=== PATIENT | male | born 1990 | race Caucasian/White ===

== ENCOUNTER 2018-04-22 22:45 | Day surgery (SDC) | payer OTHER ==
[2018-04-22 23:00] VITALS: BMI 28.1
--- NOTE | 2018-04-22 23:28 | PDOC ---
Attending Attestation - HPI HPI: 04/22/18 23:31 The patient is a 27 year old male with no past medical history here today for evaluation of abdominal pain. Patient reports that his pain began 3 days ago, is localized to the right lower quadrant, and rates it between a 3/10 and a 5/ 10. He reports having gas and taking gas-x to alleviate his symptoms. He notes one episode of diarrhea. Patient denies headache, lightheadedness. Denies fever, chills. Denies chest pain, shortness of breath. Denies nausea, vomiting. Denies urinary symptoms. Allergies: NKA PCP: none reported - Physicial Exam PE: 04/22/18 23:31 GENERAL: Awake, alert, and fully oriented, in no acute distress HEAD: No signs of trauma EYES: PERRLA, EOMI, sclera anicteric, conjunctiva clear ENT: Auricles normal inspection, hearing grossly normal, nares patent, oropharynx clear without exudates. Moist mucosa NECK: Normal ROM, supple, no lymphadenopathy, JVD, or masses LUNGS: Breath sounds equal, clear to auscultation bilaterally. No wheezes, and no crackles HEART: Regular rate and rhythm, normal S1 and S2, no murmurs, rubs or gallops ABDOMEN: +right lower quadrant tenderness with guarding. Soft, normoactive bowel sounds. No guarding. No masses EXTREMITIES: Normal range of motion, no edema. No clubbing or cyanosis. No cords, erythema, or tenderness NEUROLOGICAL: Cranial nerves II through XII grossly intact. Normal speech, normal gait SKIN: Warm, Dry, normal turgor, no rashes or lesions noted. - Medical Decision Making 04/22/18 23:32 Documentation prepared by GUIDO Bird, acting as medical technologist prn for Sima Mckenzie MD. <Elroy Trujillo - Last Filed: 04/22/18 23:31> - Resident Resident Name: Adarsh Morgan - ED Attending Attestation I have performed the following: I have examined & evaluated the patient, The case was reviewed & discussed with the resident, I agree w/resident's findings & plan - Medical Decision Making 04/23/18 00:04 Pt has RLQ pain that has been constant and consistent for the past 3 days. States that he is able to eat and that he has been moving his bowels. No loss of appetite. He is gassy, but the pain doesn't move. He has no abd swelling or fever or rash. He has no obvious hernias. He has no dysuria and no penile discharge or hematuria and no testicular swelling. 04/23/18 01:37 Chem result is still pending, as it was once hemolyzed. As a result IV contrast CT is still pending 04/23/18 02:50 Patient Name: SD POWELL THIS IS A PRELIMINARY REPORT FROM [facility] DATE OF SERVICE: 2018-04-23 02:03:52 IMAGES: [id number] EXAM: ABDOMEN \T\ PELVIS CT WITH CONTR HISTORY: Rule out appendicitis COMPARISON: None. FINDINGS: Lung bases are clear. The visualized cardiac chambers are normal size and configuration. Normal liver, gallbladder, pancreas, spleen, adrenal glands and kidneys. The stomach and abdominal small and large bowel are normal. There is no aortic aneurysm. There is no significant retroperitoneal lymphadenopathy. The pelvic small and large bowel are normal. The appendix is mildly dilated and inflamed, consistent acute appendicitis. No abscess or free air. The urinary bladder and prostate gland are normal. No pelvic free fluid is identified. There is no significant pelvic lymphadenopathy. IMPRESSION: Acute appendicitis without abscess or free air. Pt is aware; we will treat with zosyn and admit to a med surg bed. Dr Delgado has been paged. 04/23/18 03:41 Pt will go for surgery in the AM. Surgeon aware and pt is aware; pt is NPO. <Sima Mckenzie - Last Filed: 04/23/18 03:42>
--- NOTE | 2018-04-23 00:07 | PDOC ---
History of Present Illness - General Chief Complaint: Pain, Acute Stated Complaint: ABDOMINAL PAIN Time Seen by Provider: 04/22/18 22:59 History Source: Patient Exam Limitations: No Limitations - History of Present Illness Initial Comments: 04/22/18 23:58 The patient is a 27M with no PMH who presents with 3 days of abdominal pain. The patient describes 3 days of constant (with intermittent intensity) RLQ pain , nonradiating, 3/10 (5/10 at its worst), alleviated mildly by ibuprofen and exacerbated by some movements. The pain is not better or worse at any time of day. The pain is not associated with fever, chills, nausea, vomiting, anorexia, or pain elsewhere in his abdomen. He admits to infrequent use of condoms with sexual contacts but denies dysuria, hematuria, discharge, and testicular pain. Past History - Past Medical History Allergies/Adverse Reactions: Allergies Allergy/AdvReac Type Severity Reaction Status Date / Time No Known Allergies Allergy Verified 04/22/18 22:53 Home Medications: Ambulatory Orders Simethicone [Gas-X] 125 mg PO BID PRN 04/23/18 Acetaminophen [Tylenol .Regular Strength -] 650 mg PO Q6H tablet 04/24/18 Ibuprofen [Motrin -] 600 mg PO Q6H tablet 04/24/18 COPD: No - Suicide/Smoking/Psychosocial Hx Smoking History: Never smoked Have you smoked in the past 12 months: No Information on smoking cessation initiated: No Hx Alcohol Use: No Drug/Substance Use Hx: No Review of Systems - Review of Systems Able to Perform ROS?: Yes Comments:: 04/23/18 00:07 GENERAL/CONSTITUTIONAL: No fever or chills. No weakness. HEAD, EYES, EARS, NOSE AND THROAT: No change in vision. No ear pain or discharge. No sore throat. CARDIOVASCULAR: No chest pain, palpitations, or lightheadedness. RESPIRATORY: No cough, wheezing, shortness of breath, or hemoptysis. GASTROINTESTINAL: Positive for abdominal pain. No nausea, vomiting, diarrhea, or constipation. GENITOURINARY: No dysuria, frequency, hematuria, or change in urination. MUSCULOSKELETAL: No joint or muscle swelling or pain. No neck or back pain. SKIN: No rash or lesions. NEUROLOGIC: No headache, numbness, tingling, focal weakness, loss of consciousness, or change in strength/sensation. ENDOCRINE: No increased thirst. No abnormal weight change. HEMATOLOGIC/LYMPHATIC: No anemia, easy bleeding, or history of blood clots. ALLERGIC/IMMUNOLOGIC: No hives or skin allergy. Is the patient limited Irish proficient: No *Physical Exam - Vital Signs Last Vital Signs Temp Pulse Resp BP Pulse Ox 98.3 F 86 16 123/86 100 04/22/18 22:51 04/22/18 22:51 04/22/18 22:51 04/22/18 22:51 04/22/18 22:51 - Physical Exam Comments: 04/23/18 00:08 GENERAL: Well developed, well nourished. Awake and alert. No acute distress. HEENT: Normocephalic, atraumatic. Hearing grossly normal. Moist mucous membranes. PERRLA, EOMI. No conjunctival pallor. NECK: Supple. Full ROM. No JVD. CARDIOVASCULAR: Regular rate and rhythm. No murmurs, rubs, or gallops. PULMONARY: No evidence of respiratory distress. Lungs clear to auscultation bilaterally. No wheezing, rales or rhonchi. ABDOMINAL: Soft. Mild tenderness to deep palpation in RLQ. Non-distended. No rebound or guarding. GENITOURINARY: No CVA tenderness bilaterally. MUSCULOSKELETAL: Normal range of motion at all joints. No bony deformities or tenderness. EXTREMITIES: No cyanosis. No clubbing. No edema. No calf tenderness or swelling. SKIN: Warm and dry. Normal capillary refill. No rashes. No jaundice. NEUROLOGICAL: Alert, awake, appropriate. Cranial nerves 2-12 grossly intact. Normal speech. Gait is normal without ataxia. PSYCHIATRIC: Cooperative. Good eye contact. Appropriate mood and affect. Moderate Sedation - Procedure Monitoring Vital Signs: Procedure Monitoring Vital Signs Temperature 98.3 F 04/22/18 22:51 Pulse Rate 86 04/22/18 22:51 Respiratory Rate 16 04/22/18 22:51 Blood Pressure 123/86 04/22/18 22:51 O2 Sat by Pulse Oximetry (%) 100 04/22/18 22:51 ED Treatment Course - LABORATORY CBC & Chemistry Diagram: 04/23/18 05:28 04/23/18 01:10 - RADIOLOGY Radiology Studies Ordered: Category Date Time Status ABDOMEN & PELVIS CT WITH CONTR [CT] Stat CT Scan 04/22/18 23:29 Ordered Medical Decision Making - Medical Decision Making 04/23/18 00:11 The patient is a 27M with no PMH who presents to the ER with complaints of RLQ pain. The patient states that he began to "google" symptoms and was scared that he had appendicitis. He had very mild tenderness without rebound, guarding, fever, chills, nausea, vomiting, anorexia. Very unlikely to be appendicitis but possibly can be early appendicitis. I have discussed this with the patient. Will discuss with attending for further management. 04/23/18 00:17 [address]ending [address]AP with labs. 04/23/18 00:34 Pt has rebound and guarding on reassessment. Pending CTAP with IV contrast. 04/23/18 01:07 CBC shows WBC of 14.9. Pending CMP. 04/23/18 01:59 Pt signed out to Dr. Hunt pending CTAP reading. *DC/Admit/Observation/Transfer Diagnosis at time of Disposition: Appendicitis - Discharge Dispostion Disposition: HOME Condition at time of disposition: Good - Referrals - Patient Instructions - Post Discharge Activity
[2018-04-23 00:20] LABS: BASO % 0.8 % (0-2.0); EOS % 2.1 % (0-4.5); HEMOGLOBIN 14.9 GM/dL (11.7-16.9); LYMPH % 18.5 % (8-40); MCH 30.9 pg (25.7-33.7); MEAN PLT VOLUME 8.4 fl (7.5-11.1); MONO % 9.1 % (3.8-10.2); NEUT % 69.5 % (42.8-82.8); PLATELET COUNT 246 K/MM3 (134-434); RBC 4.83 M/mm3 (4.00-5.60); RDW 13.6 % (11.9-15.9); WHITE BLOOD COUNT 14.9 K/mm3 (4.0-10.0)
[2018-04-23 01:24] LABS: BASO % 1.1 % (0-2.0); HEMATOCRIT 43.5 % (35.4-49); HEMOGLOBIN 14.9 GM/dL (11.7-16.9); LYMPH % 17.5 % (8-40); MCH 31.1 pg (25.7-33.7); MCHC 34.1 g/dl (32.0-35.9); MEAN CELL VOLUME 91.2 fl (80-96); MEAN PLT VOLUME 8.2 fl (7.5-11.1); MONO % 9.5 % (3.8-10.2); NEUT % 69.9 % (42.8-82.8); PLATELET COUNT 236 K/MM3 (134-434); RBC 4.77 M/mm3 (4.00-5.60); RDW 13.3 % (11.9-15.9); WHITE BLOOD COUNT 14.1 K/mm3 (4.0-10.0)
[2018-04-23 01:36] LABS: INR 1.08 (0.83-1.09); PROTHROMBIN TIME (PATIENT) 12.7 SEC (9.7-13.0)
[2018-04-23 01:48] LABS: ALBUMIN 4.1 g/dl (3.4-5.0); ALK PHOS 63 U/L (45-117); ANION GAP 6 MMOL/L (8-16); BILIRUBIN,TOTAL 0.4 mg/dL (0.2-1); BLOOD UREA NITROGEN 14 mg/dL (7-18); CHLORIDE 104 mmol/L (98-107); CO2 28 mmol/L (21-32); CREATININE 0.9 mg/dL (0.55-1.3); GLUCOSE,RANDOM 107 mg/dL (74-106); POTASSIUM 4.2 mmol/L (3.5-5.1); SGOT/AST 14 U/L (15-37); SGPT/ALT 24 U/L (13-61); SODIUM 138 mmol/L (136-145); TOT PROT 7.7 g/dl (6.4-8.2)
--- NOTE | 2018-04-23 01:50 | PDOC ---
*Physical Exam - Vital Signs Last Vital Signs Temp Pulse Resp BP Pulse Ox 98.3 F 86 16 123/86 100 04/22/18 22:51 04/22/18 22:51 04/22/18 22:51 04/22/18 22:51 04/22/18 22:51 ED Treatment Course - LABORATORY CBC & Chemistry Diagram: 04/23/18 01:10 04/23/18 01:10 - ADDITIONAL ORDERS Additional order review: Laboratory Results 04/23/18 04/23/18 04/22/18 01:10 01:10 23:47 PT with INR 12.70 INR 1.08 Sodium 138 Potassium 4.2 Chloride 104 Carbon Dioxide 28 Anion Gap 6 L BUN 14 Creatinine 0.9 Creat Clearance w eGFR > 60 Random Glucose 107 H Calcium 9.0 Total Bilirubin 0.4 AST 14 L ALT 24 Alkaline Phosphatase 63 Total Protein 7.7 Albumin 4.1 Blood Type Cancelled Antibody Screen Cancelled 04/22/18 04/22/18 23:47 23:47 PT with INR Cancelled INR Cancelled Sodium Cancelled Potassium Cancelled Chloride Cancelled Carbon Dioxide Cancelled Anion Gap Cancelled BUN Cancelled Creatinine Cancelled Creat Clearance w eGFR Cancelled Random Glucose Cancelled Calcium Cancelled Total Bilirubin Cancelled AST Cancelled ALT Cancelled Alkaline Phosphatase Cancelled Total Protein Cancelled Albumin Cancelled Blood Type Antibody Screen 04/23/18 04/22/18 01:10 23:47 RBC 4.77 4.83 MCV 91.2 91.0 MCHC 34.1 34.0 RDW 13.3 13.6 MPV 8.2 8.4 Neutrophils % 69.9 69.5 Lymphocytes % 17.5 18.5 Monocytes % 9.5 9.1 Eosinophils % 2.0 2.1 Basophils % 1.1 0.8 Medical Decision Making - Medical Decision Making Pt was signed out to me by resident Dr. Morgan, who explained the presentation, ED course, any pending results, and needed interventions. Pending results include CT abd/pelvis with IV contrast. Pt is currently stable and is lying comfortably. Pt was taken to CT scan, pending read. 04/23/18 02:29 CT scan showed acute appendicitis without abscess. [facility] (relations director - Dr. Delgado), pending call-back. 04/23/18 02:47 Providing 3.375 g zosyn IV. 04/23/18 02:53 Dr. Delgado will accept pt under satellite, will go to surgery in the AM. Providing maintenance dose of IV LR @125 ml/hr. Pt placed NPO, last meal was 6pm 04/22. Admission order placed. Pt lying comfortably and is changed into gown. 04/23/18 03:12 *DC/Admit/Observation/Transfer Diagnosis at time of Disposition: Appendicitis Qualifiers: Appendicitis type: acute appendicitis Acute appendicitis type: with localized peritonitis Appendicitis gangrene presence: without gangrene Appendicitis perforation presence: without perforation Appendicitis abscess presence: without abscess Qualified Code(s): K35.30 - Acute appendicitis with localized peritonitis, without perforation or gangrene - Discharge Dispostion Condition at time of disposition: Stable Decision to Admit order: Yes - Referrals - Patient Instructions - Post Discharge Activity
[2018-04-23] MEDS ORDERED: PIPERACILLIN/TAZOB 3.375 GM 3.375 GM in DEXTROSE 5%-WATER - 50 ML IVPB ONE ×3 (02:53→18:00)
[2018-04-23] MEDS ORDERED: PIPERACILLIN/TAZOB 3.375 GM 3.375 GM/50 ML BAG IVPB ONE (02:55)
[2018-04-23] MEDS ORDERED: LACTATED RINGERS SOLUTION 1,000 ML/1,000 ML INFUS.BAG IV SCH (03:00)
[2018-04-23] MEDS ORDERED: ONDANSETRON 4 MG/2 ML VIAL IVPUSH PRN ×2 (03:05→12:41)
[2018-04-23] MEDS ORDERED: ACETAMINOPHEN 1000 MG/100 ML VIAL (NON FORMULARY) IVPB PRN (03:12)
[2018-04-23 06:03] LABS: BASO % 0.8 % (0-2.0); EOS % 2.3 % (0-4.5); HEMATOCRIT 40.4 % (35.4-49); HEMOGLOBIN 13.9 GM/dL (11.7-16.9); LYMPH % 25.5 % (8-40); MCH 31.1 pg (25.7-33.7); MCHC 34.5 g/dl (32.0-35.9); MEAN CELL VOLUME 90.2 fl (80-96); MEAN PLT VOLUME 8.2 fl (7.5-11.1); MONO % 11.3 % (3.8-10.2); NEUT % 60.1 % (42.8-82.8); PLATELET COUNT 220 K/MM3 (134-434); RBC 4.48 M/mm3 (4.00-5.60); RDW 13.2 % (11.9-15.9); WHITE BLOOD COUNT 10.2 K/mm3 (4.0-10.0)
--- NOTE | 2018-04-23 08:41 | HP ---
Admitting History and Physical - Admission Chief Complaint: RLQ pain History of Present Illness: 27yo healthy M developed a cold about 4 days ago with nasal congestion, and also started a fasting diet, where he did not eat in the mornings, and on , began having RLQ pain intermittently, which never really went away. He thought it was gas, related to his diet changes, and took some ibuprofen Tuesday, which masked it temporarily, but did not fully relieve the pain. It has persisted, and he came to the ER last night, concerned that it might not be just gas. He has had occasional pain there in the past, but not like this. In the ER, he had wbc 14, was afebrile, and CT showed acute appendicitis without perforation or abscess. He had Powerade about midnight before this was determined, but has been NPO since. He got fluids and Zosyn in the ER, and is seen and examined in ER holding. He still has some pain, but it has never gotten unbearable. Denies F/C, N/V, D/C except for a little diarrhea about a week ago, prior to this episode. Denies urinary symptoms. History Source: Patient Limitations to Obtaining History: No Limitations - Past Medical History Cardiovascular: No: HTN Pulmonary: No: Asthma Endocrine: No: Diabetes Mellitus Additional Past Medical History: denies - Past Surgical History Past Surgical History: Yes: None - Smoking History Smoking history: Current some day smoker (no cigarettes but hookah, occasionally , ~monthly) Have you smoked in the past 12 months: No Aproximately how many cigarettes per day: 0 - Alcohol/Substance Use Hx Alcohol Use: Yes (occasionally) History of Substance Use: reports: None - Social History ADL: Independent Occupation: echo/US technologist at [employer] Home Medications - Allergies Allergies/Adverse Reactions: Allergies Allergy/AdvReac Type Severity Reaction Status Date / Time No Known Allergies Allergy Verified 04/22/18 22:53 - Home Medications Home Medications: Ambulatory Orders Simethicone [Gas-X] 125 mg PO BID PRN 04/23/18 Home Medications (free text): dayquil few days ago, ibuprofen prn - had 400mg on Tuesday Family Disease History - Family Disease History Family History: Unremarkable (noncontributory) Review of Systems - Review of Systems Constitutional: denies: Chills, Fever Eyes: denies: Blurred Vision, Recent Change in Vision HENT: reports: Nasal Congestion, Other (got a cold 4d ago, still a bit stuffy). denies: Difficult Swallowing, Throat Pain Neck: denies: Swollen Glands, Tenderness Cardiovascular: denies: Chest Pain, Palpitations Respiratory: denies: Cough, SOB Gastrointestinal: reports: Abdominal Pain (with hpi), Diarrhea (last week, but before current symptoms). denies: Constipation, Nausea, Vomiting Genitourinary: denies: Burning, Dysuria Musculoskeletal: denies: Back Pain, Joint Pain, Muscle Pain Integumentary: denies: Change in Color, Rash Neurological: denies: Dizziness, Headache, Unsteady Gait Psychiatric: denies: Anxiety, Depression Physical Examination Vital Signs: Vital Signs Temperature 97 F L 04/23/18 07:05 Pulse Rate 76 04/23/18 07:05 Respiratory Rate 16 04/23/18 07:05 Blood Pressure 99/69 04/23/18 07:05 O2 Sat by Pulse Oximetry (%) 98 04/23/18 07:05 Constitutional: Yes: Well Nourished, No Distress, Calm Eyes: Yes: Conjunctiva Clear, EOM Intact HENT: Yes: Atraumatic, Normocephalic, Nasal Congestion (mild) Neck: Yes: Supple, Trachea Midline Cardiovascular: Yes: Regular Rate and Rhythm. No: Murmur Respiratory: Yes: Regular, CTA Bilaterally Gastrointestinal: Yes: Normal Bowel Sounds, Soft, Tenderness (RLQ at McBurney's , no rebound or guarding, mild referral from RUQ). No: Distention ...Rectal Exam: Yes: Deferred Renal/: No: CVA Tenderness - Left, CVA Tenderness - Right Musculoskeletal: No: Joint Stiffness, Joint Swelling Extremities: No: Cool, Cyanosis Edema: No Peripheral Pulses WNL: Yes Integumentary: Yes: Body Piercing (right nipple ring (9 yrs)). No: Jaundice, Rash Neurological: Yes: Alert, Oriented Psychiatric: Yes: Alert, Oriented Labs: CBC, BMP 04/23/18 05:28 04/23/18 01:10 CMP Sodium 138 mmol/L (136-145) 04/23/18 01:10 Potassium 4.2 mmol/L (3.5-5.1) 04/23/18 01:10 Chloride 104 mmol/L (98-107) 04/23/18 01:10 Carbon Dioxide 28 mmol/L (21-32) 04/23/18 01:10 Anion Gap 6 MMOL/L (8-16) L 04/23/18 01:10 BUN 14 mg/dL (7-18) 04/23/18 01:10 Creatinine 0.9 mg/dL (0.55-1.3) 04/23/18 01:10 Creat Clearance w eGFR > 60 (>60) 04/23/18 01:10 Random Glucose 107 mg/dL (74-106) H 04/23/18 01:10 Calcium 9.0 mg/dL (8.5-10.1) 04/23/18 01:10 Total Bilirubin 0.4 mg/dL (0.2-1) 04/23/18 01:10 AST 14 U/L (15-37) L 04/23/18 01:10 ALT 24 U/L (13-61) 04/23/18 01:10 Alkaline Phosphatase 63 U/L (45-117) 04/23/18 01:10 Total Protein 7.7 g/dl (6.4-8.2) 04/23/18 01:10 Albumin 4.1 g/dl (3.4-5.0) 04/23/18 01:10 INR, PTT INR 1.08 (0.83-1.09) 04/23/18 01:10 Imaging - Results Cat Scan: Report Reviewed, Image Reviewed (images reviewed - enlarged appendix, inflammatory changes, no abscess or perforation evident) Problem List - Problems (1) Acute appendicitis with localized peritonitis without abscess Assessment/Plan: admit to surgery 23H/satellite NPO/IVF until postop IV antibiotics periop - Zosyn started DVT prophylaxis pain meds prn, nonnarcotics first line Discussed with patient risks, benefits and alternatives of laparoscopic possible open appendectomy, including but not limited to bleeding, infection, injury to adjacent structures, intestinal leak or injury, intraabdominal abscess , incisional hernia, need for further procedures; alternatives include antibiotics, delayed or no surgery - risks of this include failure of nonoperative therapy, perforation, sepsis, recurrence, . Patient desires to proceed with operation - will take to OR for above. Informed consent signed for same. Code(s): K35.30 - ACUTE APPENDICITIS WITH LOC PERITONITIS, W/O PERF OR GANGR Qualifiers: Appendicitis gangrene presence: without gangrene Appendicitis perforation presence: without perforation Qualified Code(s): K35.30 - Acute appendicitis with localized peritonitis, without perforation or gangrene (2) Leukocytosis Code(s): D72.829 - ELEVATED WHITE BLOOD CELL COUNT, UNSPECIFIED Qualifiers: Leukocytosis type: bandemia Qualified Code(s): D72.825 - Bandemia (3) RLQ abdominal pain Code(s): R10.31 - RIGHT LOWER QUADRANT PAIN (4) Right lower quadrant abdominal tenderness without rebound tenderness Code(s): R10.813 - RIGHT LOWER QUADRANT ABDOMINAL TENDERNESS
[2018-04-23] MEDS ORDERED: DESFLURANE GAS 240 ML BOTTLE IH ONE (10:57)
[2018-04-23] MEDS ORDERED: fentaNYL CITRATE 250 MCG/5 ML VIAL ONE (11:00)
[2018-04-23] MEDS ORDERED: PROPOFOL 20 ML ONE ×2 (11:01)
[2018-04-23] MEDS ORDERED: SUCCINYLCHOLINE CHLORIDE 200 MG/10 ML VIAL ONE (11:01)
[2018-04-23] MEDS ORDERED: ROCURONIUM BROMIDE 50 MG/5 ML VIAL ONE (11:02)
[2018-04-23] MEDS ORDERED: PIPERACILLIN/TAZOBACTAM 3.375 GM VIAL IVPB ONE ×2 (11:20→16:31)
[2018-04-23] MEDS ORDERED: BUPIVACAINE HCL/PF 0.5% (5MG/ML) 10 ML VIAL ONE (12:01)
[2018-04-23] MEDS ORDERED: NEOSTIGMINE METHYLSULFATE 0.5 MG/ML - 10 ML MDV ONE (12:23)
[2018-04-23] MEDS ORDERED: GLYCOPYRROLATE 0.2 MG/1 ML VIAL ONE ×2 (12:24)
[2018-04-23] MEDS ORDERED: DEXAMETHASONE SOD PHOSPHATE 4 MG/1 ML VIAL ONE (12:24)
[2018-04-23] MEDS ORDERED: KETOROLAC TROMETHAMINE 30 MG/1 ML VIAL ONE (12:24)
[2018-04-23] MEDS ORDERED: BUPIVACAINE HCL/PF 0.5% (5MG/ML) 10 ML VIAL IJ ONE (12:26)
[2018-04-23] MEDS ORDERED: BENZOIN TINCTURE SWABSTICK TP ONE (12:29)
[2018-04-23] MEDS ORDERED: PROMETHAZINE HCL 25 MG/1 ML VIAL IVPB PRN (12:41)
[2018-04-23] MEDS ORDERED: oxyCODONE HCL 5 MG TABLET PO PRN ×3 (12:41→13:35)
[2018-04-23] MEDS ORDERED: LACTATED RINGERS SOLUTION 1,000 ML IV SCH (12:45)
--- NOTE | 2018-04-23 12:46 | OP ---
Operative Note - Note: Operative Date: 04/23/18 Pre-Operative Diagnosis: acute appendicitis Operation: laparoscopic appendectomy Findings: base of appendix identified at cecal junction, appendix socked into inflamed tissues deep, followed and down to tip until free - long and skinny but inflamed/stuck to surrounding tissues; scant light yellow fluid in pelvis at start, suctioned Post-Operative Diagnosis: Same as Pre-op Surgeon: Jin Delgado Anesthesiologist/TRAFFIC MONITOR SPECIALIST: John Bryson Anesthesia: General, Local (10ml 0.5% marcaine) Specimens Removed: appendix to pathology Estimated Blood Loss (mls): 5 Drains & Tubes with Location: [place] out at end of case Drains, Volume Out (mls): 150 (UOP) Fluid Volume Replaced (mls): 1,000 (crystalloid) Operative Report Dictated: Yes
[2018-04-23] MEDS ORDERED: ACETAMINOPHEN 1000 MG/100 ML VIAL (NON FORMULARY) IVPB ONE (12:48)
--- NOTE | 2018-04-23 14:35 | OP ---
DATE OF OPERATION: 04/23/2018 PREOPERATIVE DIAGNOSIS: Acute appendicitis. POSTOPERATIVE DIAGNOSIS: Acute appendicitis. PROCEDURE: Laparoscopy appendectomy. SURGEON: Jin Delgado MD. ANESTHESIA: General endotracheal and local 10 mL of 0.5% Marcaine. ESTIMATED BLOOD LOSS: 5 mL. FLUIDS: 1 L of crystalloid. URINE OUTPUT: 150 mL. SPECIMENS: Appendix to pathology. FINDINGS: The base of the appendix was identified at the cecal junction. The appendix itself was socked into inflamed tissues deeply but was followed down and carefully until the tip was free. The appendix itself was inflamed but long and skinny and stuck to surrounding tissues. There was scant-like yellow fluid in the pelvis which was suctioned at the beginning. DISPOSITION: Stable and extubated to PACU. INDICATIONS FOR PROCEDURE: The patient is a 27-year-old healthy male with no significant past medical or surgical history who began experiencing right lower quadrant pain 3 days ago. He thought it was related from gas from a new diet that he had started with fasting in the mornings. He also had developed an upper respiratory illness with nasal congestion 4 days ago which has not completely resolved. The pain only temporarily and only partly responded to ibuprofen on Tuesday and persisted to the point where he finally came into the ER last night concerned that it might be more than just gas. In the ER he had a white count of 14,000, was afebrile, and a CT showed acute appendicitis without perforation or abscess. He received fluids and Zosyn in the emergency room and the risks, benefits, and alternatives were discussed with the patient of laparoscopic possible open appendectomy including but not limited to bleeding, infection, injury to adjacent structures, intestinal leak or injury, intra-abdominal abscess, incisional hernia, need for further procedures and alternatives inclusive of antibiotics and delayed or no surgery with potential risks of failure of nonoperative therapy, perforation, sepsis, recurrence, and . The patient desired to proceed with the operation and signed an informed consent for the same and is now brought to the operating room. OPERATIVE TECHNIQUE: The patient was brought to the operating room and laid supine on the operating room table. Sequential compression devices were applied to bilateral lower extremities and a second dose of Zosyn was given in the operating room immediately prior to starting the operation. After induction and intubation by Anesthesia, a Sherwood catheter was placed into the patients bladder which was removed at the end of the case. His abdomen was clipped of hair in the lower portion and prepped and draped in a sterile fashion. A small umbilical incision was made with a scalpel and carried into the subcutaneous tissues with electrocautery until the abdominal wall fascia was identified, scored, and elevated with Génesis clamps. The peritoneum was entered bluntly with the tip of a clamp and a fingertip was inserted to ensure entry into the abdominal cavity and the absence of any underlying adhesions. A stay suture of 0 Vicryl was then placed in a [id number]-ophys fashion and the fascia for later closure. The Evelyne trocar was introduced directly into the abdominal cavity and secured in place with the balloon. The abdomen was insufflated with carbon dioxide. The patient was placed in a reverse Trendelenburg position with the right side planed upward and the laparoscope inserted to inspect the abdominal cavity. The cecum was visible in the right lower quadrant but the appendix was not visible. The Veil of Treves was noted in this area as well. Two additional 5 mm ports were then placed in the left lower quadrant and suprapubic area under direct vision and the cannula was moved to the left lower quadrant port. Graspers to the other 2 ports were used to gently manipulate the terminal ileum somewhat medially although it did not really want to stay over and the tenia of the cecum were followed to identify the base of the appendix where it joined the cecum. Once this area had been identified, it was gently grasped and elevated and a small window created just behind the appendix adjacent to the cecum large enough to pass the Maryland grasper through it. This was accomplished with the [place] not with the other grasper. Dissection continued with the [place] dissector with the base of the appendix being held with the grasper. Initially the edge of the cecum had to be from some inflammatory thin filmy adhesions to the sidewall as well and the base of the appendix was grasped and elevated and the inflamed tissues surrounding the appendix itself as it dove deep into the incision posteriorly were gently peeled down little by little bluntly and slowly the appendix was freed from where it was rather socked away into the inflamed tissues. Care was taken to avoid the terminal ileum in the Veil of Treves at all times and the appendix was sequentially grasped closer and closer to the tip to facilitate this dissection. Once we finally freed the tip of the appendix itself, it was also noted that there was very little if any mesoappendix attached to the appendix itself where it had dived down into these tissues. There had only been a small amount of oozing from the inflammatory tissues and this was at the side of the cecum. The suction tools programmer was used to suction a very scant amount of light yellow fluid at the beginnings of the pelvis and a little bit of the bloody fluid from this area but there was no continued active bleeding at all. The appendix was then grasped and elevated at the body and a purple load of the Endo ROSA ISELA stapler size 45 introduced to transect the appendix at the base of the cecum. This may have included a small sliver of the cecum itself. Once the staple line was inspected, it was noted to be completely hemostatic and again the operative field was inspected for hemostasis and the last of the local fluid suctioned from the field at which point the appendix was placed in an EndoCatch bag to the Evelyne port. The suprapubic port was removed under direct vision and a finger held over the hole. The appendix was retrieved out the umbilical port site with the Evelyne trocar and a camera and left lower quadrant port were also removed from the abdomen which was exsufflated of carbon dioxide. The appendix was removed from the bag and inspected and again noted to be quite small and skinny and was passed off the table for a pathologic specimen. The suture was tied at the fascia at the umbilicus to close the defect there and hemostasis was achieved and the port sites with electrocautery where necessary. Local anesthetic was infiltrated into all 3 port sites and the skin was closed with 4-0 Vicryl subcuticular sutures including a running at the umbilicus. Benzoin and Steri-Strips were then applied over each incision and dressings with gauze and Tegaderm were placed over these. The Sherwood catheter was then removed from the patients bladder at the end of the case and urine output recorded. Counts were correct at the end of the procedure. The patient was then awakened and extubated by Anesthesia. He was able to move himself back onto a stretcher and was taken back to the recovery room in stable condition and he tolerated the procedure well. Jin Delgado M.D. [id number]
[2018-04-23] MEDS: LACTATED RINGERS SOLUTION 1,000 ML IV SCH ×2 (14:51→22:52)
[2018-04-23] MEDS ORDERED: IBUPROFEN 600 MG TABLET (FP) PO SCH (15:00)
[2018-04-23] MEDS ORDERED: DEXTROSE 5%-WATER - 50 ML IVPB ONE (16:31)
[2018-04-23] MEDS: IBUPROFEN 600 MG TABLET (FP) PO SCH ×2 (16:37→21:09)
[2018-04-23] MEDS: ACETAMINOPHEN 325 MG TABLET (FP) PO SCH (17:20)
[2018-04-23] MEDS ORDERED: ACETAMINOPHEN 325 MG TABLET (FP) PO SCH (18:00)
[2018-04-24] MEDS: ACETAMINOPHEN 325 MG TABLET (FP) PO SCH ×3 (00:19→11:40)
[2018-04-24] MEDS: IBUPROFEN 600 MG TABLET (FP) PO SCH ×2 (04:00→09:39)
--- NOTE | 2018-04-24 07:55 | PN ---
Progress Note (short form) - Note Progress Note: Post op day#1.S/P Laproscopic appendectomy under GA uneventful.Patient stable.No any anesthesia related problem.Patient DC from the anesthesia care.
[2018-04-24 09:44] VITALS: BP 114/62; PULSE 90; TEMP 98.1
--- NOTE | 2018-04-24 12:29 | DS ---
Physical Examination Vital Signs: Vital Signs Temperature 98.1 F 04/24/18 09:00 Pulse Rate 90 04/24/18 09:00 Respiratory Rate 20 04/24/18 09:00 Blood Pressure 114/62 04/24/18 09:00 O2 Sat by Pulse Oximetry (%) 96 04/24/18 09:00 Findings/Remarks: Seen and examined in bed, awake, comfortable. Voiding, yellow urine in urinal. Has ambulated, tolerated diet, pain controlled with alternating tylenol and ibuprofen. Has some incisional pain, not like before, and some gas pains intermittently. No n/v, no fevers. Constitutional: Yes: Well Nourished, No Distress, Calm Eyes: Yes: Conjunctiva Clear, EOM Intact HENT: Yes: Atraumatic, Normocephalic Cardiovascular: Yes: Regular Rate and Rhythm Respiratory: Yes: Regular, CTA Bilaterally Gastrointestinal: Yes: Normal Bowel Sounds (slightly decreased), Soft, Distention (mild), Tenderness (incisional and mild RLQ, no alfonso/guard) Musculoskeletal: No: Joint Stiffness, Joint Swelling Extremities: No: Cool, Cyanosis Integumentary: Yes: Incision (x3 dressed). No: Jaundice, Rash Wound/Incision: Yes: Steri Strips (under dressings), Dressing Dry and Intact (x3 ). No: Dressing Removed Neurological: Yes: Alert, Oriented Labs: no new labs Discharge Summary Reason For Visit: ACUTE APPENDICITIS Current Active Problems Acute appendicitis with localized peritonitis without abscess (Acute) Leukocytosis (Acute) RLQ abdominal pain (Acute) Right lower quadrant abdominal tenderness without rebound tenderness (Acute) Procedures: Principal: laparoscopic appendectomy Hospital Course: 27yo healthy M with no PMH/PSH presented with 3d of RLQ pain, steady but not resolving with ibuprofen or time. He had wbc 14 in ER, was afebrile, and CT showed acute appendicitis with no abscess or perforation. He was tender focally in RLQ, and was taken for uneventful laparascopic appendectomy with findings of a long, skinny appendix densely stuck to surrounding tissues, without evidence of perforation. He received perioperative Zosyn. Postoperatively, he has done well, tolerating diet, ambulating, voiding, and pain is controlled with alternating nonnarcotics. He is discharged home with lifting restrictions to f/ u in 2 weeks. He is also referred to a PMD to establish care, as he currently has none. Time spent on discharge: 35 minutes. Condition: Good - Instructions Diet, Activity, Other Instructions: Postoperative instructions: You had a laparoscopic appendectomy on 04/23/[address] Jin Delgado of [facility]. Activity: Resume your usual activities gradually, but no heavy exertion or lifting more than 10-15 pounds for 1 month. Remove dressings 48 hours after surgery; sticky tapes underneath will fall off by themselves. You may shower daily starting then, just pat the incision areas dry. No bath or swimming until skin incisions have healed. Eat lightly at first, but advance to your usual diet as tolerated. Pain: For pain, you may use and alternate Tylenol (acetaminophen) 1-2 pills and/ or ibuprofen 200 mg (1-3 pills) every 6 hours each as needed; this means that you can take one OR the other at 3-hour intervals. If you are prescribed a Tylenol/narcotic combination for severe pain, use it instead of plain Tylenol as needed and switch back when your pain starts decreasing. Do not take more than 4000mg of acetaminophen in a day. Take medications as prescribed or indicated on the labeling. Follow-up: Call Dr. Delgado's office at [phone] to make your postop appointment (Tuesday in approximately 2 weeks after surgery). Clinic is held in the [facility] on the first floor of [facility]. Call the office if you have: * increasing pain not responsive to pain medication * fever of 101F or higher * vomiting * unusual or increasing bleeding or drainage from wounds * increasing redness or swelling at wound sites * inability to urinate Also, see your primary medical doctor within 1-2 weeks. If you do not have one, a referral has been made - please call for an appointment to establish care. Referrals: Jordan Villatoro MD [Staff Physician] - Adarsh Grover MD [Staff Physician] - Lizz Molina MD [Staff Physician] - Jin Delgado MD [Staff Physician] - 2 Weeks Disposition: HOME - Home Medications Comprehensive Discharge Medication List: Ambulatory Orders Simethicone [Gas-X] 125 mg PO BID PRN 04/23/18 Acetaminophen [Tylenol .Regular Strength -] 650 mg PO Q6H tablet 04/24/18 Ibuprofen [Motrin -] 600 mg PO Q6H tablet 04/24/18
--- NOTE | 2018-04-25 14:11 | PATH ---
Surgical Pathology Report Patient Name: SD POWELL [facility]. Rec. #: [id number] /Age/Gender: 1990 (Age: 27) / M Account: [id number] Location: AMBULATORY SURG Taken: 04/23/2018 Received: 04/24/2018 Reported: 04/25/2018 Physicians: Jin Delgado M.D. PHYSICIAN EMERGENCY DEPT Specimen(s) Received APPENDIX Clinical History Acute appendicitis Final Diagnosis APPENDIX, APPENDECTOMY: ACUTE APPENDICITIS AND FOCAL PERIAPPENDICITIS. Electronically Signed Abiodun Ruano M.D. Gross Description Specimen is received in formalin, labeled "appendix", and consists of an appendix, measuring 6.5 cm in length and up to 0.8cm in diameter. The serosal (external) surface of the appendix is dull. On opening the appendix contains fecal material. The mucosal surface is red-brown and ulcerated. Call Center Operator sections are submitted in 2 cassettes. 1. margin and tips, bisected. 2. Call Center Operator sections [email or web address]/04/24/2018 [email or web address]/04/24/2018
== END 2018-04-24 13:56 | disposition home or self-care (01) ==
LOC: JER 22:45 → JASUSAT 04-23 03:12 → JASU-SURG 04-23 03:12 → JSAMEDAYSX 04-23 09:18 → J8W 04-23 14:24 → JASUSAT 04-24 13:56
PROVIDERS: ATTEND Surgery
PROC: 0DTJ4ZZ Resection of Appendix, Percutaneous Endoscopic Approach (ICD-10-PCS; principal; 2018-04-23 10:30)
DX: K35.890 Other acute appendicitis without perforation or gangrene (principal)
CPT/HCPCS: 36415; 74177-TC; 80053; 85025; 85610; 86850; 86900; 86901; 88304-TC; 94760; 99284-25; J0131

== ENCOUNTER 2018-05-01 18:55 | Emergency (ER) | payer OTHER ==
--- NOTE | 2018-05-01 19:09 | PDOC ---
Rapid Medical Evaluation Time Seen by Provider: 05/01/18 19:06 Medical Evaluation: Allergies Allergy/AdvReac Type Severity Reaction Status Date / Time No Known Allergies Allergy Verified 04/22/18 22:53 05/01/18 19:07 I have performed a brief in-person evaluation of the patient. The patient presents with a chief complaint of: infected surgical site. s/p appendectomy one week ago, umbilical site with redness and drainage, states tender to touch Pertinent physical exam findings. NAD even and unlabored breathing dressing in place at umbilical site with yellowish drainage I have ordered the following. The patient will proceed to the ED for further evaluation.
[2018-05-01 19:12] VITALS: BP 123/79; PULSE 89; TEMP 98.3; BMI 28.1
--- NOTE | 2018-05-01 20:10 | PDOC ---
History of Present Illness - General Chief Complaint: Wound Stated Complaint: FOLLOW UP Time Seen by Provider: 05/01/18 19:06 History Source: Patient - History of Present Illness Initial Comments: 05/01/18 20:01 27 year old male s/p Lap appendectomy on 04/23/[address] delgado here for evaluation on umbilical incision site patient reports minimal abdominal pain at the site. no redness at the site. wound is well approximated with serosanguinous drainage. Past History - Past Medical History Allergies/Adverse Reactions: Allergies Allergy/AdvReac Type Severity Reaction Status Date / Time No Known Allergies Allergy Verified 04/22/18 22:53 Home Medications: Ambulatory Orders Acetaminophen [Tylenol .Regular Strength -] 650 mg PO Q6H tablet 04/24/18 Ibuprofen [Motrin -] 600 mg PO Q6H tablet 04/24/18 COPD: No Other medical history: denies - Surgical History Appendectomy: Yes - Immunization History Td Vaccination: Yes TDAP Vaccination: Yes Immunization Up to Date: Yes - Suicide/Smoking/Psychosocial Hx Smoking History: Never smoked Have you smoked in the past 12 months: No Number of Cigarettes Smoked Daily: 0 Hx Alcohol Use: No Drug/Substance Use Hx: No Review of Systems - Review of Systems Able to Perform ROS?: Yes Is the patient limited Greenlandic proficient: No Constitutional: No: Symptoms Reported, See HPI, Chills, Diaphoresis, Fever, Loss of Appetite, Malaise, Night Sweats, Weakness, Weight Stable, Unintentional Wgt. Loss, Unexplained wgt Loss, Other ABD/GI: No: Symptoms Reported, See HPI, Abdominal Distended, Abd. Pain w/ defecation, Blood Streaked Bowels, Constipated, Diarrhea, Difficulty Swallowing , Nausea, Poor Appetite, Poor Fluid Intake, Rectal Bleeding, Vomiting, Indigestion, Abdominal cramping, Tarry Stools, Other Neurological: Yes: Other (drainge at the incision) *Physical Exam - Vital Signs Last Vital Signs Temp Pulse Resp BP Pulse Ox 98.3 F 89 18 123/79 99 05/01/18 19:10 05/01/18 19:10 05/01/18 19:10 05/01/18 19:10 05/01/18 19:10 - Physical Exam General Appearance: Yes: Appropriately Dressed Gastrointestinal/Abdominal: positive: Other (umbilical site incision well approximated. minimal serosanguinous drainage noted. slight tenderness at ruslan site no erythema noted. left groin and supubic site surgical inicison is clean dry and intact) Moderate Sedation - Procedure Monitoring Vital Signs: Procedure Monitoring Vital Signs Temperature 98.3 F 05/01/18 19:10 Pulse Rate 89 05/01/18 19:10 Respiratory Rate 18 05/01/18 19:10 Blood Pressure 123/79 05/01/18 19:10 O2 Sat by Pulse Oximetry (%) 99 05/01/18 19:10 Medical Decision Making - Medical Decision Making 05/01/18 20:[address] delgado. advised to follow up outpatient in 2 days as per appointment. strict return precaution including abdominal pain, fever, erythema that is spreading reviewed with patient. patient verbalized understanding *DC/Admit/Observation/Transfer Diagnosis at time of Disposition: Encounter for evaluation of wound, Seroma after procedure - Discharge Dispostion Disposition: HOME - Referrals Referrals: Jin Delgado MD [Staff Physician] - 2 Days - Patient Instructions Printed Discharge Instructions: How to Care for a Surgical Wound Additional Instructions: keep wound covered. return to the ER for any worsening symptoms including, fever, redness, pus drainage, abdominal pain Additional Instructions: * Please call your personal physician to report your Emergency Department visit and to report your progress, if any. * If there is no improvement in symptoms in 2 days call your physician. * Return to the Emergency Department for any worsening symptoms. - Post Discharge Activity
== END 2018-05-01 20:23 | disposition home or self-care (01) ==
LOC: JER 18:55
DX: K91.873 Postprocedural seroma of a digestive system organ or structure following other procedure (principal)
CPT/HCPCS: 99281-25